=== PATIENT | male | born 1965 | race Caucasian/White ===

== ENCOUNTER → 2022-01-14 | Outpatient (CLI) | payer BC, MEDICARE, SELFPAY ==
[2022-01-14 21:39] LABS: Absolute Lymphocyte Count 2.25 X10^3/uL (0.83-4.51); Absolute Neutrophil Count 3.8 X10^3/uL (2.0-7.7); Basophil# 0.03 X10^3/uL; Basophil% 0.4 % (0-1); Eosinophil# 0.07 X10^3/uL; Hematocrit 42.5 % (40-54); Hemoglobin 14.2 g/dL (13.0-16.5); Lymphocyte # 2.25 X10^3/ul (0.83-4.51); Lymphocyte % 32.9 % (19-41); Mean Corp Hgb Conc 33.4 g/dL (32-36); Mean Corpuscular Hgb 32.6 pg (27.0-32.0); Mean Corpuscular Volume 97.5 fL (80-94); Mean Platelet Vol. 10.2 fl (6.2-12.0); Monocyte# 0.72 X10^3/uL; Monocyte% 10.5 % (0-10); NRBC Flagged by Analyzer 0 % (0-5); Neutrophil # 3.76 X10^3/uL (2.7-7.7); Neutrophil % 55.1 % (47-70); Platelet Count 323 K/mm3 (150-450); RBC Distribution Width CV 12.7 % (11.6-14.6); RBC Distribution Width SD 45.9 fl (35.1-43.9); Red Blood Count 4.36 M/mm3 (4.6-6.2); White Blood Count 6.8 K/mm3 (4.4-11.0)
[2022-01-14 22:23] LABS: ALB/GLOB Ratio 1.1 RATIO (0.9-2.4); AST(SGOT) 30 U/L (15-37); Alanine Aminotransfer ALT/SGPT 49 U/L (16-61); Albumin, Serum 4.2 g/dL (3.2-5.0); Alkaline Phosphatase 65 U/L (45-117); Anion Gap 6 (5-15); BUN 10 mg/dL (7-18); BUN/Creat Ratio 10.2 RATIO (10-20); CRP 5.66 mg/L (0.0-3.0); Calcium,Total 9.8 mg/dL (8.5-10.1); Chloride 104 mmol/L (98-107); Cholesterol 218 mg/dL (200); Creatinine, Serum 0.98 mg/dL (0.70-1.30); EST Glomerular Filtration Rate 83 mL/min (>60); Est Glom Filt Rate - Afr Amer 101 mL/min (>60); Globulin 3.7 g/dL (2.2-4.2); Glucose 117 mg/dL (74-106); High Density Lipoprotein 62 mg/dL; Potassium 4.7 mmol/L (3.5-5.1); Protein, Total 7.9 g/dL (6.4-8.2); Rheumatoid Factor < 10.0 IU/mL (<15); Sodium Level 137 mmol/L (136-145); Thyroid Stim Hormone (TSH) 3.76 uIU/mL (0.358-3.74); Triglycerides 187 mg/dL; Very Low Density Lipoprotein 37 mg/dL (5-40)
[2022-01-16 13:07] LABS: Anti-Centromere B Ab <0.2 AI (0.0-0.9); Anti-Chromatin <0.2 AI (0.0-0.9); Anti-Jo <0.2 AI (0.0-0.9); Anti-Scleroderma-70 AB <0.2 AI (0.0-0.9); RNP Ab <0.2 AI (0.0-0.9); SJOGREN'S Anti-SS-A test < 0.2 AI (0.0-0.9); SJOGREN'S Anti-SS-B test < 0.2 AI (0.0-0.9); Smith Ab <0.2 AI (0.0-0.9)
[2022-01-18 16:31] LABS: Anti-dsDNA Ab 1 IU/mL (0-9)
== END | disposition home or self-care (01) ==
PROVIDERS: Visit Provider Nurse Practitioner
DX: I10 Essential (primary) hypertension (principal); M54.2 Cervicalgia; M47.812 Spondylosis without myelopathy or radiculopathy, cervical region; M25.50 Pain in unspecified joint
CPT/HCPCS: 80053; 80061; 84443; 85025; 86140; 86225; 86235; 86431

== ENCOUNTER → 2022-09-09 | Outpatient (CLI) | payer BC, MEDICARE, SELFPAY ==
--- NOTE | 2022-09-09 07:12 | MRI_ITS ---
STUDY: MRI CERVICAL SPINE WITHOUT CONTRAST REASON FOR EXAM: Male, 57 years old. Neck pain, back pain and leg pain. TECHNIQUE: Standardized fat and water weighted pulse sequences were obtained in the sagittal and axial planes. COMPARISON: Cervical spine radiographs 10/27/2021. FINDINGS: Normal foramen magnum and brainstem-cervical cord junction. Normal craniovertebral junction. Normal anterior atlantoaxial articulation. Normal odontoid process. Straightening of the C-spine curvature is unchanged. Normal vertebral bodies and posterior osseous elements. C2-3: Normal endplates. Normal disc height, signal and morphology. Normal central canal and intervertebral neural foramina. Moderate left C2-C3 degenerative facet arthropathy. C3-4: Prominent anterior marginal spurs. Pronounced disc space height narrowing. Normal central canal and intervertebral neural foramina. C4-5: Normal endplates. Smaller anterior marginal spurs. Pronounced disc space height narrowing. Mild central canal stenosis due to posterior marginal spurs. The AP canal diameter of 6 mm. Moderate stenosis of the intervertebral neural foramina due to bone spurs. C5-6: Minimal Modic type I degenerative vertebral marrow edema underneath the vertebral endplates. Pronounced disc space height narrowing. Normal central canal. Pronounced stenosis of the right intervertebral neural foramen. Moderate stenosis of the left intervertebral neural foramen. C6-7: Normal endplates. Mild disc space height narrowing. Normal central canal. Moderate stenosis of the intervertebral neural foramina. C7-T1: Mild Modic type I degenerative vertebral marrow edema underneath the vertebral endplates. Pronounced disc space height narrowing. Mild ventral extradural defect due to bone spur. Normal central canal and right intervertebral neural foramen. Mild stenosis of the left intervertebral neural foramen. T1-T2: (Sagittal only). Normal endplates. Normal disc height. Mild ventral extradural defect due to posterior bulging annulus. Normal central canal and intervertebral neural foramina. T2-T3 and T3-T4: (Sagittal only). Normal endplates. Normal disc height, signal and morphology. Normal central canal and intervertebral neural foramina. Possible tiny midline syrinx of the cervical spinal cord at C1 ring level down to the lower C3 vertebral body level (series 2, image 8). I am unable to confirm this in the axial views. Normal included upper thoracic spinal cord, brainstem and cerebellum. Normal visualized soft tissue structures. MRI/Spine Cervical (Routine) IMPRESSION: 1. Suspicious tiny linear syrinx of the cervical spinal cord without cord expansion (series 2, image 8) but I am unable to confirm this the axial views. 2. Minimal C5-C6 intervertebral osteochondritis (Modic type I), pronounced stenosis of the right C5-C6 intervertebral neural foramen and moderate stenosis of the left C5-C6 intervertebral neural foramina due to osteophytic encroachment. 3. Mild central canal stenosis at C4-C5 disc space level with an AP canal diameter of 6 mm and moderate stenosis of the intervertebral neural foramina. 4. Moderate stenosis of the C6-C7 intervertebral neural foramina due to osteophytic encroachment. 5. No MRI evidence of cervical extruded disc fragment or disc protrusion. Electronically Signed: Aly Flynn MD at 13:39 EDT ,
== END | disposition home or self-care (01) ==
LOC: MRI 07:02
PROVIDERS: PCP Nurse Practitioner; Referring Provider Orthopaedic Surgery; Visit Provider Orthopaedic Surgery
DX: M47.812 Spondylosis without myelopathy or radiculopathy, cervical region (principal)
CPT/HCPCS: 72141

== ENCOUNTER → 2022-11-11 | Outpatient (CLI) | payer BC, MEDICARE, SELFPAY ==
--- NOTE | 2022-11-11 12:58 | NEURO ---
NCS and/or EMG Patient Report Ordering Doctor: Jerald Dewitt DATE OF SERVICE: 11/11/22 Royal presents for electrodiagnostic testing of the upper limbs. He reports numbness and tingling in both upper limbs. Electrodiagnostic findings: Median motor nerve demonstrates normal distal latency, amplitude and conduction velocity bilaterally. Normal ulnar motor response bilaterally. Normal median and ulnar F waves. Borderline prolonged right median sensory latency at the wrist with reduced amplitude and conduction velocity. Normal ulnar and radial sensory responses. Needle EMG testing shows no evidence of denervation in muscles tested. Motor unit action potentials are of normal amplitude and duration. Electrodiagnostic assessment: This is an abnormal study. 1. Electrodiagnostic findings suggestive of right-sided median mononeuropathy. This is consistent with a mild right carpal tunnel syndrome. There is no definitive electrodiagnostic evidence for left-sided carpal tunnel syndrome. 2. No electrodiagnostic evidence is noted for cervical radiculopathy. Multi Select Codes Neurology Neurology Interp Codes: 57532-57 Musc test done w/n test comp (interp) (2) and 79702-01 Nrv cndj test 11-12 studies (interp)
--- NOTE | 2022-11-11 13:21 | NEURO_ITS ---
Multi Select Codes Neurology Neurology Interp Codes: 02666-17 Musc test done w/n test comp (interp) (2) and 43443-11 Nrv cndj test 11-12 studies (interp)
--- NOTE | 2022-11-11 13:21 | NEURO ---
Multi Select Codes Neurology Neurology Interp Codes: 58337-96 Musc test done w/n test comp (interp) (2) and 08501-48 Nrv cndj test 11-12 studies (interp)
== END | disposition home or self-care (01) ==
LOC: PSN 06:47
PROVIDERS: PCP Nurse Practitioner; Referring Provider Orthopaedic Surgery; Visit Provider Orthopaedic Surgery
DX: M79.2 Neuralgia and neuritis, unspecified (principal); R20.0 Anesthesia of skin
CPT/HCPCS: 95886; 95912